=== PATIENT | female | born 1980 | race Two or more races ===

== ENCOUNTER 2017-04-16 22:39 | Emergency (ER) | payer MEDICAID ==
[~2017-04-16] VITALS: Ht 172.7 cm; Wt 56.7 kg
[2017-04-16 22:47] VITALS: BP 118/76
[2017-04-16] MEDS ORDERED: Ketorolac 60mg Inj IM ONE (23:15)
[2017-04-16 23:23] LABS: APPEARANCE,URINE CLEAR; BILIRUBIN, URINE NEGATIVE (NEGATIVE); COLOR,URINE PALE YELLOW; GLUCOSE, URINE (UA) NEGATIVE (NEGATIVE); KETONES,URINE NEGATIVE (NEGATIVE); LEUKOCYTE ESTERASE ,URINE NEGATIVE (NEGATIVE); NITRITE,URINE NEGATIVE (NEGATIVE); PROTEIN,URINE NEGATIVE (NEGATIVE); UROBILINOGEN,URINE NORMAL MG/DL (0.0-1.0)
--- NOTE | 2017-04-16 23:31 | Emergency Room Report ---
History of Present Illness General Chief Complaint: Lower Back Pain or Injury Source: Patient Present Illness Allergies: Coded Allergies: No Known Allergies (Unverified , 04/16/17) Patient History Past Medical History: see triage record, old chart reviewed Past Surgical History: none Pertinent Family History: none Social History: Denies: smoking Last Menstrual Period: a month ago Now: No : 0 Immunizations: other Reviewed Nursing Documentation: PMH: Agreed, PSxH: Agreed Nursing Documentation-PMH Past Medical History: No Stated History Physical Exam Vital Signs Date Time Temp Pulse Resp B/P (MAP) Pulse Ox O2 Delivery O2 Flow Rate FiO2 04/16/17 22:43 98.4 73 18 118/76 98 Room Air Medical Decision Making Diagnostic Impression: Primary Impression: Strain of lumbar paraspinal muscle Qualified Codes: S39.012A - Strain of muscle, fascia and tendon of lower back , initial encounter ER Course Patient presents with acute lower back pain. Most her pain over her muscle. No evidence of trauma. No evidence of cauda equina syndrome, spinal or abscess or neoplastic process. If not better, may need MRI. Other X-Ray Diagnostic Results Other X-Ray Diagnostic Results : X-Ray ordered: X-ray lumbar spine # of Views/Limited Vs Complete: 4 View Indication: Pain EP Interpretation: Yes Interpretation: no dislocation, no soft tissue swelling, no fractures Impression: No acute disease Electronically Signed by: Emeterio Mon MD Last Vital Signs Date Time Temp Pulse Resp B/P (MAP) Pulse Ox O2 Delivery O2 Flow Rate FiO2 04/16/17 22:47 98.4 61 18 118/76 98 Room Air Status: improved Disposition: HOME, SELF-CARE Condition: Stable Scripts Methocarbamol* (ROBAXIN*) 500 Mg Tablet 500 MG PO TID, #30 TAB 0 Refills Prov: EMETERIO MON M.D. 04/17/17 Ibuprofen* (MOTRIN*) 600 Mg Tablet 600 MG ORAL Q6H Y for For Pain, #30 TAB Prov: EMETERIO MON M.D. 04/17/17 Referrals: [facility] (PCP) EMETERIO MON M.D. Apr 16, 2017 23:30
[2017-04-17] MEDS ORDERED: ROBAXIN500 MG PO (00:43)
[2017-04-17] MEDS ORDERED: IBUPROFEN600 MG ORAL (00:43)
[2017-04-17 00:47] VITALS: BP 106/65
[2017-04-17 00:58] VITALS: BP 106/61
--- NOTE | 2017-04-17 10:19 | Diagnostic Imaging Report ---
Indication: Lower back pain Technique: XRAY [facility] [employer] Comparison: None Findings: There are 5 lumbar type nonrib-bearing vertebral bodies, assuming 12 paired ribs. There is mild curvature of the lower lumbar spine, possibly positional in etiology. No acute fracture is identified. There is mild straightening of the lumbar lordosis. Vertebral body heights and disc spaces are preserved. Bowel gas pattern is nonspecific, with air in multiple large and small bowel loops. The bowel gas pattern is not overtly obstructive. Impression: No evidence of acute fracture or traumatic malalignment.
--- NOTE | 2017-06-01 04:03 | Emergency Room Report ---
History of Present Illness General Chief Complaint: Lower Back Pain or Injury Source: Patient Present Illness HPI This a 36-year-old female with no significant past medical history. She presents with chief complaint lower back pain. No trauma. 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 She started having lower back pain daily's ago. Now worse with movement. Pain is localized to the lower lumbar area. No radiation. Worse with movement. Pain is 9 out of 10. No relief with Motrin. No nausea no vomiting. No fever or chills. Allergies: Coded Allergies: No Known Allergies (Unverified , 04/16/17) Patient History Past Medical History: see triage record, old chart reviewed Past Surgical History: other Pertinent Family History: none Social History: Denies: smoking Last Menstrual Period: a month ago Now: No : 0 Immunizations: other Reviewed Nursing Documentation: PMH: Agreed, PSxH: Agreed Nursing Documentation-PMH Past Medical History: No Stated History Review of Systems Eye: Denies: eye pain, blurred vision ENT: Denies: ear pain, nose congestion, throat swelling Respiratory: Denies: cough, shortness of breath Cardiovascular: Denies: chest pain, palpitations Gastrointestinal: Denies: abdominal pain, diarrhea, nausea, vomiting Musculoskeletal: Reports: back pain, Denies: joint pain Skin: Denies: rash Neurological: Denies: headache, numbness Endocrine: Denies: increased thirst, increased urine Hematologic/Lymphatic: Denies: easy bruising All Other Systems: negative except mentioned in HPI Physical Exam Vital Signs Date Time Temp Pulse Resp B/P (MAP) Pulse Ox O2 Delivery O2 Flow Rate FiO2 04/16/17 22:43 98.4 73 18 118/76 98 Room Air vitals normal Sp02 EP Interpretation: reviewed, normal General Appearance: well appearing, no apparent distress, alert Head: normocephalic, atraumatic Eyes: bilateral eye PERRL, bilateral eye EOMI ENT: hearing grossly normal, normal pharynx Neck: full range of motion, supple, no meningismus Respiratory: chest non-tender, lungs clear, normal breath sounds Cardiovascular #1: regular rate, rhythm, no murmur Gastrointestinal: normal bowel sounds, non tender, no mass, no organomegaly, no bruit, non-distended Musculoskeletal: back normal, gait/station normal, normal range of motion, other - No anesthesia. No step-off. No midline tenderness. Tenderness to the lower lumbar area. Psychiatric: mood/affect normal Skin: warm/dry Medical Decision Making Diagnostic Impression: Primary Impression: Strain of lumbar paraspinal muscle ER Course Patient with tenderness over the lower lumbar area. Most likely muscle spasm. No evidence of cauda equina syndrome, spinal epidural abscess or neoplastic process. Other X-Ray Diagnostic Results Other X-Ray Diagnostic Results : X-Ray ordered: Lumbar x-ray's # of Views/Limited Vs Complete: Complete Indication: Pain PA Xray: Interpretation reviewed Interpretation: no dislocation, no soft tissue swelling, no fractures, nonspecific bowel gas Impression: No acute disease Electronically Signed by: Emeterio Mon mD Last Vital Signs Date Time Temp Pulse Resp B/P (MAP) Pulse Ox O2 Delivery O2 Flow Rate FiO2 04/17/17 00:58 98.4 62 16 106/61 98 Room Air Status: improved Disposition: HOME, SELF-CARE Condition: Stable Scripts Methocarbamol* (ROBAXIN*) 500 Mg Tablet 500 MG PO TID, #30 TAB 0 Refills Prov: EMETERIO MON M.D. 04/17/17 Ibuprofen* (MOTRIN*) 600 Mg Tablet 600 MG ORAL Q6H Y for For Pain, #30 TAB Prov: EMETERIO MON M.D. 04/17/17 Referrals: [facility] (PCP) Patient Instructions: Back Pain, Adult Additional Instructions: Follow up with your doctor in 7 days. If not better may need MRI. Your doctor can order this if needed. Return if worse. EMETERIO MON M.D. Jun 01, 2017 04:03
== END 2017-04-17 00:58 | disposition home or self-care (01) ==
LOC: EMR 22:59
DX: S39.012A Strain of muscle, fascia and tendon of lower back, initial encounter (principal); X58.XXXA Exposure to other specified factors, initial encounter; Y92.9 Unspecified place or not applicable
CPT/HCPCS: 72020; 81003; 81025; 96372; 99284

== ENCOUNTER 2017-04-29 00:13 | Emergency (ER) | payer MEDICAID ==
[~2017-04-29] VITALS: Ht 172.7 cm; Wt 56.7 kg
[~2017-04-29 00:13] MED LIST: IBUPROFEN600 MG ORAL; ROBAXIN500 MG PO
[2017-04-29] MEDS ORDERED: NKM (00:22)
[2017-04-29 00:23] VITALS: BP 117/71
[2017-04-29] MEDS ORDERED: Acetaminophen 500mg (ES) tab ORAL ONE (01:30)
[2017-04-29 01:35] LABS: APPEARANCE,URINE CLEAR; BILIRUBIN, URINE NEGATIVE (NEGATIVE); COLOR,URINE PALE YELLOW; GLUCOSE, URINE (UA) NEGATIVE (NEGATIVE); KETONES,URINE 1+ (NEGATIVE); LEUKOCYTE ESTERASE ,URINE NEGATIVE (NEGATIVE); NITRITE,URINE NEGATIVE (NEGATIVE); PH,URINE 6 (4.5-8.0); PROTEIN,URINE NEGATIVE (NEGATIVE); UROBILINOGEN,URINE NORMAL MG/DL (0.0-1.0)
[2017-04-29] MEDS ORDERED: TRAMADOL HCL50 MG ORAL (02:21)
[2017-04-29] MEDS ORDERED: AUGMENTIN 875-1 EAC1 ORAL (02:21)
--- NOTE | 2017-04-29 02:21 | Emergency Room Report ---
History of Present Illness General Chief Complaint: Fever Source: Patient Present Illness HPI Is a 36-year-old female with no past medical history. She presents with chief complaint of fever, body pain and sore throat. Onset today. Also with enlarged tender right-sided lymph node. Pain radiates to the neck and head. Pain is 8/10. No nausea no vomiting. No urinary complaint. Allergies: Coded Allergies: No Known Allergies (Unverified , 04/16/17) Patient History Past Medical History: see triage record, old chart reviewed Past Surgical History: other Pertinent Family History: none Social History: Denies: smoking Last Menstrual Period: 04/16/17 Now: No : 0 Para: 0 Immunizations: other Reviewed Nursing Documentation: PMH: Agreed, PSxH: Agreed Nursing Documentation-PMH Past Medical History: No History, Except For Review of Systems Constitutional: Reports: chills, sweats, fever Eye: Denies: eye pain, blurred vision ENT: Denies: ear pain, nose congestion, throat swelling Respiratory: Denies: cough, shortness of breath Cardiovascular: Denies: chest pain, palpitations Gastrointestinal: Denies: abdominal pain, diarrhea, nausea, vomiting Musculoskeletal: Denies: back pain, joint pain Skin: Denies: rash Neurological: Denies: headache, numbness Endocrine: Denies: increased thirst, increased urine Hematologic/Lymphatic: Denies: easy bruising All Other Systems: negative except mentioned in HPI Physical Exam Vital Signs Date Time Temp Pulse Resp B/P (MAP) Pulse Ox O2 Delivery O2 Flow Rate FiO2 04/29/17 00:18 100.4 91 20 117/71 95 Room Air vitals with fever Sp02 EP Interpretation: reviewed, normal General Appearance: well appearing, no apparent distress, alert Head: normocephalic, atraumatic Eyes: bilateral eye PERRL, bilateral eye EOMI ENT: hearing grossly normal, tonsillar swelling, pharyngeal erythema Neck: full range of motion, supple, no meningismus, tender - Tender right cervical adenopathy Respiratory: chest non-tender, lungs clear, normal breath sounds Cardiovascular #1: regular rate, rhythm, no murmur Gastrointestinal: normal bowel sounds, non tender, no mass, no organomegaly, no bruit, non-distended Musculoskeletal: back normal, gait/station normal, normal range of motion Neurologic: alert, oriented x3 Psychiatric: anxious Skin: warm/dry Medical Decision Making Diagnostic Impression: Primary Impression: Acute tonsillitis Qualified Codes: J03.90 - Acute tonsillitis, unspecified Additional Impression: Fever Qualified Codes: R50.9 - Fever, unspecified ER Course Patient presents with fever and sore throat. She has a large and erythematous tonsil. We'll treat with antibiotics. May have influenza. She is otherwise stable. No risk factors for increased nobody mortality. Last Vital Signs Date Time Temp Pulse Resp B/P (MAP) Pulse Ox O2 Delivery O2 Flow Rate FiO2 04/29/17 00:23 100.4 71 20 117/71 95 Room Air Status: improved Disposition: HOME, SELF-CARE Condition: Stable Scripts Tramadol Hcl* (ULTRAM*) 50 Mg Tablet 50 MG ORAL Q6H Y for For Pain, #20 TAB 0 Refills Prov: JOSE JUAN SULLIVAN M.D. 04/29/17 Amoxicillin/Potassium Clav 875-125* (AUGMENTIN 875-125 TABLET*) 1 Each Tablet 1 TAB ORAL TWICE A DAY, #14 TAB Prov: JOSE JUAN SULLIVAN M.D. 04/29/17 Additional Instructions: Increase fluids. Salt water gargle. Return for increasing pain or any concern. Followup with your [facility] in 7 days. JOSE JUAN SULLIVAN M.D. Apr 29, 2017 02:21
[2017-04-29 02:31] VITALS: BP 117/71
== END 2017-04-29 02:30 | disposition home or self-care (01) ==
LOC: EMR 00:38
DX: J03.90 Acute tonsillitis, unspecified (principal)
CPT/HCPCS: 81003; 99284

== ENCOUNTER 2018-05-06 20:44 | Emergency (ER) | payer MEDICAID ==
[~2018-05-06] VITALS: Ht 172.7 cm; Wt 58.1 kg
[~2018-05-06 20:44] MED LIST changes: +AUGMENTIN 875-1 EAC1 ORAL; +NKM; +TRAMADOL HCL50 MG ORAL
--- NOTE | 2018-05-06 20:50 | NUR ---
ED Nurse Note: Patient walked into ED c/o of lower back pain that radiates to her lower abdomen states that she gets this type of pain when shes on her period but worse at this time 01/03 pain
[2018-05-06] MEDS ORDERED: NKM (20:52)
[2018-05-06 20:54] VITALS: BP 121/84
--- NOTE | 2018-05-06 21:08 | Emergency Room Report ---
History of Present Illness General Chief Complaint: Lower Back Pain or Injury Source: Patient Present Illness HPI This is a 37-year-old female with a history of lower back pain and pelvic pain. She said that she saw mold car pusher last year and had ultrasound done. She was told that she has fibroid and endometriosis. She never had confirmation with laparoscopic surgery. She said she's too afraid. She presents with chief complaint of pelvic pain. Radiating to the groin area. She just started her menstrual today. After heavy bleeding. Pain is sharp and crampy. 9 out of 10. Worse with walking. Similar symptom in the past. Denies any other complaint. Nothing made it better. Nothing made it worse. No dysuria or frequency or urgency C. Allergies: Coded Allergies: No Known Allergies (Unverified , 04/16/17) Patient History Past Medical History: see triage record, old chart reviewed Past Surgical History: none Pertinent Family History: none Social History: Denies: smoking Last Menstrual Period: currently on period Now: No : 0 Para: 0 Immunizations: other Reviewed Nursing Documentation: PMH: Agreed; PSxH: Agreed Nursing Documentation-PMH Past Medical History: No History, Except For Review of Systems Eye: Denies: eye pain, blurred vision ENT: Denies: ear pain, nose congestion, throat swelling Respiratory: Denies: cough, shortness of breath Cardiovascular: Denies: chest pain, palpitations Gastrointestinal: Denies: abdominal pain, diarrhea, nausea, vomiting Genitourinary: Reports: pain, vag bleed/dc Musculoskeletal: Denies: back pain, joint pain Skin: Denies: rash Neurological: Denies: headache, numbness Endocrine: Denies: increased thirst, increased urine Hematologic/Lymphatic: Denies: easy bruising All Other Systems: negative except mentioned in HPI Physical Exam Vital Signs Date Time Temp Pulse Resp B/P (MAP) Pulse Ox O2 Delivery O2 Flow Rate FiO2 05/06/18 20:46 98.4 71 22 100 Room Air 05/06/18 20:54 121/84 vitals normal Sp02 EP Interpretation: reviewed, normal General Appearance: well appearing, no apparent distress, alert Head: normocephalic, atraumatic Eyes: bilateral eye PERRL, bilateral eye EOMI ENT: hearing grossly normal, normal pharynx Neck: full range of motion, supple, no meningismus Respiratory: chest non-tender, lungs clear, normal breath sounds Cardiovascular #1: regular rate, rhythm, no murmur Gastrointestinal: normal bowel sounds, non tender, no mass, no organomegaly, no bruit, non-distended Musculoskeletal: back normal, gait/station normal, normal range of motion Psychiatric: mood/affect normal Skin: warm/dry Medical Decision Making Diagnostic Impression: Primary Impression: Pelvic pain ER Course This patient presents with exacerbation of recurrent pelvic pain. Probably endometriosis. Advised patient to get her laparoscopic surgery for confirmation. No evidence of torsion, ectopic, infection to name a few. We'll discharge home. Last Vital Signs Date Time Temp Pulse Resp B/P (MAP) Pulse Ox O2 Delivery O2 Flow Rate FiO2 05/06/18 20:54 98.4 78 20 121/84 100 Room Air Status: improved Disposition: HOME, SELF-CARE Condition: Stable Scripts Ibuprofen* (MOTRIN*) 600 Mg Tablet 600 MG ORAL THREE TIMES A DAY, #30 TAB 0 Refills Prov: Emeterio Mon MD 05/06/18 Hydrocodone/Acetaminophen 5-325* (HYDROCODONE/ACETAMINOPHEN 5-325*) 1 Each Tablet 1 TAB ORAL Q6H PRN for For Pain, #15 TAB 0 Refills Prov: Emeterio Mon MD 05/06/18 Additional Instructions: Follow-up with your mold car pusher within a week. Recommend getting laparoscopic surgery for confirmation of endometriosis. Return if symptom worsen. Emeterio Mon MD May 06, 2018 21:08
[2018-05-06] MEDS ORDERED: HYDROCODON-ACE1 EA15 ORAL (21:09)
[2018-05-06] MEDS ORDERED: IBUPROFEN600 MG ORAL (21:09)
[2018-05-06 21:13] VITALS: BP 119/82
--- NOTE | 2018-05-06 21:14 | NUR ---
ED Nurse Note: PT is Dc per ERMD order. pt is stable for DC. pt is alert and oriented times 4. pt left with all DC notes and prescriptions and belongings. pt is able to teach back DC notes. pt is instructed to follow up with primary MD as soon as possible. pt vital signs is stable. pt status, condition and vital signs reported to ERMD prior to DC. pt ID band removed.
[2018-05-06] MEDS ORDERED: HYDROmorphone 1mg/ml Carpuject IM ONE (21:15)
== END 2018-05-06 21:20 | disposition home or self-care (01) ==
LOC: EMR 21:20
DX: R10.2 Pelvic and perineal pain (principal); M54.5 Low back pain
CPT/HCPCS: 96372; 99283; J1170

== ENCOUNTER 2019-02-11 23:45 | Emergency (ER) | payer MEDICAID ==
[~2019-02-11] VITALS: Ht 172.7 cm; Wt 56.7 kg
[~2019-02-11 23:45] MED LIST changes: +HYDROCODON-ACE1 EA15 ORAL
[2019-02-12 00:05] VITALS: BP 112/67
[2019-02-12] MEDS ORDERED: Albuterol ud Inhalation HHN ONE (00:45)
[2019-02-12] MEDS ORDERED: Ipratropium 0.02% Inh Soln 2.5ml UD HHN ONE (00:45)
[2019-02-12] MEDS ORDERED: PREDNISONE20 MG ORAL (01:04)
[2019-02-12] MEDS ORDERED: ALBUTEROL SULF8.5 GM INH (01:04)
[2019-02-12] MEDS ORDERED: ZITHROMAX250 MG ORAL (01:04)
--- NOTE | 2019-02-12 01:05 | Emergency Room Report ---
History of Present Illness General Chief Complaint: Flu Like Symptoms Source: Patient Present Illness HPI This is a 38-year-old female who had a history of asthma as a kid. She is no longer using inhaler. She presents with cough and congestion and fever and chills. Onset for over a week. Subjective fever. Sore throat. Also with congestion in her nose and had headache. Coughing is phlegm. Now she feels short of breath and slight wheezing. Denies any other complaint. Worse with exertion. Better with rest. Allergies: Coded Allergies: No Known Allergies (Unverified , 04/16/17) Patient History Past Medical History: see triage record, old chart reviewed, asthma Past Surgical History: other Pertinent Family History: none Social History: Denies: smoking Last Menstrual Period: 12/2018 Now: No Immunizations: other Reviewed Nursing Documentation: PMH: Agreed; PSxH: Agreed Review of Systems Constitutional: Reports: fever, malaise Eye: Denies: eye pain, blurred vision ENT: Denies: ear pain, nose congestion, throat swelling Respiratory: Reports: cough, shortness of breath, wheezing Cardiovascular: Denies: chest pain, palpitations Gastrointestinal: Denies: abdominal pain, diarrhea, nausea, vomiting Musculoskeletal: Denies: back pain, joint pain Skin: Denies: rash Neurological: Reports: headache; Denies: numbness Endocrine: Denies: increased thirst, increased urine Hematologic/Lymphatic: Denies: easy bruising All Other Systems: negative except mentioned in HPI Physical Exam Vital Signs Date Time Temp Pulse Resp B/P (MAP) Pulse Ox O2 Delivery O2 Flow Rate FiO2 02/11/19 23:53 98.8 70 18 112/67 (82) 97 Room Air Vitals normal Sp02 EP Interpretation: reviewed, normal General Appearance: well appearing, no apparent distress, alert Head: normocephalic, atraumatic Eyes: bilateral eye PERRL, bilateral eye EOMI ENT: hearing grossly normal, normal pharynx Neck: full range of motion, supple, no meningismus Respiratory: chest non-tender, decreased breath sounds, wheezing Cardiovascular #1: regular rate, rhythm, no murmur Gastrointestinal: normal bowel sounds, non tender, no mass, no organomegaly, no bruit, non-distended Musculoskeletal: back normal, gait/station normal, normal range of motion Psychiatric: mood/affect normal Medical Decision Making Diagnostic Impression: Primary Impression: Influenza-like symptoms Additional Impressions: Atypical pneumonia Asthma exacerbation Qualified Codes: J45.21 - Mild intermittent asthma with (acute) exacerbation ER Course Patient presents with upper restaurant infection and now with subjective fever and wheezing. She has exacerbation of asthma and may be atypical pneumonia. We will put her on antibiotics. No evidence of ACS, PE, dissection to name a few. Better after breathing treatment. Last Vital Signs Date Time Temp Pulse Resp B/P (MAP) Pulse Ox O2 Delivery O2 Flow Rate FiO2 02/12/19 00:05 98.8 18 112/67 97 Room Air 02/12/19 00:05 70 Status: improved Disposition: HOME, SELF-CARE Condition: Stable Scripts Azithromycin* (ZITHROMAX*) 250 Mg Tablet 250 MG ORAL DAILY, #6 TAB 0 Refills Take two tables once daily for 1 day, then one tablet once daily for 4 days. Prov: Emeterio Mon MD 02/12/19 Prednisone* (PREDNISONE*) 20 Mg Tablet 40 MG ORAL DAILY, #8 TAB Prov: Emeterio Mon MD 02/12/19 Albuterol Sulfate* (ALBUTEROL SULFATE MDI*) 8.5 Gm Hfa.aer.ad 2 PUFF INH Q4H PRN for cough/wheezing, #1 EA 0 Refills Prov: Emeterio Mon MD 02/12/19 Referrals: [facility] (PCP) Additional Instructions: Rest. Increase fluids. Follow-up with your doctor in 7 days. Return if worse. Emeterio Mon MD Feb 12, 2019 01:05
[2019-02-12 01:17] VITALS: BP 112/67
== END 2019-02-12 01:17 | disposition home or self-care (01) ==
LOC: EMR 23:59
DX: J18.9 Pneumonia, unspecified organism (principal); J45.21 Mild intermittent asthma with (acute) exacerbation
CPT/HCPCS: 94640; 94664; J7512; Z7502; 99284